=== PATIENT | female | born 1985 | race African-American/Black ===

== ENCOUNTER 2017-04-15 18:10 | Emergency (ER) | payer OTHER ==
[~2017-04-15] VITALS: Ht 157.5 cm; Wt 61.6 kg
[2017-04-15 18:12] VITALS: BP 96/69
[2017-04-15] MEDS ORDERED: LIDOCAINE 1%, 20ML SQ ONE (18:30)
[2017-04-15] MEDS ORDERED: LIDOCAINE 1%, 20ML ONE (18:33)
[2017-04-15] MEDS ORDERED: LIDOCAINE 1%, 10ML INFIL ONE (19:00)
== END 2017-04-15 18:54 | disposition home or self-care (01) ==
LOC: ED 18:35
DX: L72.3 Sebaceous cyst (principal)
CPT/HCPCS: 10060; 99283; J3490